=== PATIENT | male | born 1950 | race Caucasian/White ===

== ENCOUNTER 2017-03-02 02:01 | Emergency (ER) | payer MEDICAID, MEDICARE ==
[~2017-03-02] VITALS: Ht 175.3 cm; Wt 77.2 kg
[~2017-03-02 02:01] MED LIST: ASPI325T17 PO; ATOR20TA9 PO; DULO30CA2 PO; ERGO500017 PO; ESCI10TA PO; FOLI1CAP4 PO; HYDR-3240 PO; HYDR-3245 PO; HYDR-3307 PO; ISOS30TA21 PO; ISOS30TA8 PO; ISOS40TA11 PO; LISI-167 PO; METF850T2 PO; METO25TA35 PO; PRAZ5CAP2 PO; RANI300T PO; TRAZ50TA18 PO; [UNRECOGNIZED DRUG - CODE] IV
[2017-03-02] MEDS ORDERED: ASPIRIN 81 MG TABLET CHEW ONE (02:48)
[2017-03-02] MEDS ORDERED: ASPIRIN 81 MG TABLET CHEW PO ONE (03:00)
[2017-03-02] MEDS ORDERED: ONDANSETRON 2MG/ML, 2ML IVPush ONE (03:00)
[2017-03-02] MEDS ORDERED: MORPHINE SULFATE 4 MG/ML, 1ML IVPush PRN (03:00)
[2017-03-02] MEDS ORDERED: SODIUM CHLORIDE 0.9% 1,000ML IVBOLUS ONE (03:00)
[2017-03-02] MEDS ORDERED: SODIUM CHLORIDE FLUSH 10ML SYR IVF ONE (03:00)
[2017-03-02] MEDS ORDERED: morphine SULFATE 10 MG/ML, 1ML ONE (03:08)
[2017-03-02] MEDS ORDERED: ONDANSETRON 2MG/ML, 2ML ONE (03:14)
[2017-03-02 03:26] LABS: HEMATOCRIT 44.3 % (39.2-51.8); HEMOGLOBIN 15.2 g/dL (13.7-18.0); WHITE BLOOD COUNT 8.2 x10^3/uL (3.4-10)
[2017-03-02 03:39] LABS: BLOOD UREA NITROGEN 15 mg/dL (7-18)
[2017-03-02 03:45] LABS: ASPARTATE AMINO TRANSFERASE 13 U/L (15-37)
[2017-03-02 04:03] LABS: IS PT STATUS REG ER OR PRE ER? YES
[2017-03-02] MEDS ORDERED: OMNIPAQUE 350 MG/ML, 100ML BOTTLE ONE (04:26)
[2017-03-02 05:10] LABS: PATH.CAST-FLAG NOT PRESENT; SPERM-FLAG NOT PRESENT; SRC-FLAG NOT PRESENT; XTAL-FLAG NOT PRESENT; YLC-FLAG NOT PRESENT
[2017-03-02 05:26] VITALS: BP 132/65
== END 2017-03-02 06:09 | disposition home or self-care (01) ==
LOC: ED 05:46
DX: I72.3 Aneurysm of iliac artery (principal); R07.2 Precordial pain; E11.65 Type 2 diabetes mellitus with hyperglycemia; E78.5 Hyperlipidemia, unspecified; F32.9 Major depressive disorder, single episode, unspecified; I10 Essential (primary) hypertension; I25.2 Old myocardial infarction; J44.9 Chronic obstructive pulmonary disease, unspecified; Z85.51 Personal history of malignant neoplasm of bladder; Z87.891 Personal history of nicotine dependence
CPT/HCPCS: 36415; 71010; 74177; 80053; 81001; 82962; 84484; 85025; 93005; 96361; 96374; 96375; 99285; J2405; J7030; Q9967